=== PATIENT | male | born 1940 | race Hispanic/Latino ===

== ENCOUNTER 2018-07-17 05:30 | Day surgery (SDC) | payer OTHER ==
[~2018-07-17] VITALS: Ht 167.6 cm; Wt 65.6 kg
[~2018-07-17 05:30] MED LIST: CALC600T12 PO; CARB25DR OU; CLOP75TA14 PO; GLUC100019 PO; GOSE10.8 SQ; INSU100V12 SQ; LISI10TA7 PO; METO50 PO
[2018-07-17] MEDS ORDERED: SODIUM CHLORIDE 0.9% 1000ML 1,000 ML IV ONE (05:48)
[2018-07-17 06:36] VITALS: BP 167/75
[2018-07-17] MEDS ORDERED: ESTR PO (07:12)
[2018-07-17] MEDS ORDERED: ISOS10TA8 PO (07:12)
[2018-07-17] MEDS ORDERED: FISH OIL PO (07:12)
[2018-07-17] MEDS ORDERED: REPAGLINIDE PO (07:12)
[2018-07-17] MEDS ORDERED: ASPI-555 PO (07:12)
[2018-07-17] MEDS ORDERED: LORA10CA9 PO (07:12)
[2018-07-17] MEDS ORDERED: LEVO25TA54 PO (07:12)
[2018-07-17] MEDS ORDERED: VOLTAREN (07:12)
[2018-07-17] MEDS ORDERED: CHOL4PAC21 PO (07:12)
[2018-07-17] MEDS ORDERED: PRAV40TA3 PO (07:12)
[2018-07-17] MEDS ORDERED: PROPOFOL 10 MG/ML 20ML VIAL IV ONE (07:13)
[2018-07-17 07:34] VITALS: BP 113/58
[2018-07-17 07:39] VITALS: BP 114/66
[2018-07-17 07:44] VITALS: BP 131/58
[2018-07-17 07:49] VITALS: BP 139/71
[2018-07-17 07:54] VITALS: BP 149/72
== END 2018-07-17 08:41 | disposition home or self-care (01) ==
LOC: ENDO 05:30 → DAH 05:30 → ENDO 08:41
PROVIDERS: ATTEND Internal Medicine
DX: K57.30 Diverticulosis of large intestine without perforation or abscess without bleeding (principal); K62.0 Anal polyp; K29.50 Unspecified chronic gastritis without bleeding; I10 Essential (primary) hypertension; I25.10 Atherosclerotic heart disease of native coronary artery without angina pectoris; E11.9 Type 2 diabetes mellitus without complications; K21.0 Gastro-esophageal reflux disease with esophagitis; K31.89 Other diseases of stomach and duodenum; Z86.010 Personal history of colon polyps; Z85.46 Personal history of malignant neoplasm of prostate; E78.5 Hyperlipidemia, unspecified; D64.9 Anemia, unspecified; I48.91 Unspecified atrial fibrillation; Z98.890 Other specified postprocedural states; Z79.899 Other long term (current) drug therapy; Z80.0 Family history of malignant neoplasm of digestive organs; Z83.3 Family history of diabetes mellitus; Z88.0 Allergy status to penicillin; Z88.8 Allergy status to other drugs, medicaments and biological substances; K64.9 Unspecified hemorrhoids
CPT/HCPCS: 43239; 45330; 82948 ×2; 88305; 88312; 93005; A4606; J2704; J7030